=== PATIENT | female | born 1970 | race Caucasian/White ===

== ENCOUNTER 2020-06-07 11:24 | Inpatient (IN) ==
[2020-06-07] MEDS ORDERED: SODIUM CHLORIDE 0.9% 1000ML 1,000 ML IV SCH (13:00)
[2020-06-07 13:17] LABS: Basophils # (auto) 0.01 K/uL (0-0.2); Basophils % (auto) 0.2 %; Hematocrit (blood only) 35.7 % (37-47); Hemoglobin 12.5 g/dL (12.0-16.0); Immature Granulocytes # (auto) 0.03 K/uL (0.00-0.02); Immature Granulocytes % (auto) 0.5 %; Lymphocytes # (auto) 0.65 K/uL (1.2-3.4); Lymphocytes % (auto) 10.7 %; Mean Corpuscular Hemoglobin 29.1 pg (25-34); Mean Corpuscular Volume 83.2 fL (80-100); Monocytes # (auto) 0.56 K/uL (0.11-0.59); Monocytes % (auto) 9.2 %; Neutrophils # (auto) 4.85 K/uL (1.4-6.5); Neutrophils % (auto) 79.4 %; Platelet Count 212 K/uL (130-400); RDW Coefficient of Variation 12.7 % (11.5-14.5); RDW Standard Deviation 38.3 fL (36.4-46.3); Red Blood Count 4.29 M/uL (4.2-5.4)
--- NOTE | 2020-06-07 13:22 | XRay Report ---
XR chest 1V portable HISTORY: Difficulty breathing. Resp sx c/w COVID-19 COMPARISON: None. FINDINGS: No pneumothorax. No pleural effusions. The cardiac silhouette is normal in size. There is p atchy bilateral hazy airspace opacities with mild interstitial thickening. This likely represents a m ultifocal pneumonia. IMPRESSION: Bilateral patchy hazy airspace opacities with interstitial thickening. This favors a multifocal pneum onia. ACT 112: Negative or not required by law. Electronically signed by: Kishore Levin M.D. 06/07/2020 1:27 PM
[2020-06-07 13:30] LABS: Partial Thromboplastin Ratio 0.9; Partial Thromboplastin Time 23.1 Seconds (21.0-31.0); Prothrombin Time 10.6 Seconds (9.0-12.0)
[2020-06-07 13:36] LABS: Alanine Aminotransferase 41 U/L (12-78); Albumin Level 3.3 gm/dl (3.4-5.0); Aspartate Aminotransferase 33 U/L (15-37); Blood Urea Nitrogen 8 mg/dl (7-18); Calcium 8.2 mg/dl (8.5-10.1); Carbon Dioxide 26 mmol/L (21-32); Chloride 102 mmol/L (98-107); Creatinine Clr Calc Pharmacy 108.7 ml/min; Est GFR (African American) 100.5; Est GFR (Non-African American) 86.7; Glucose 213 mg/dl (70-99); Magnesium 2.3 mg/dl (1.8-2.4); Potassium 3.6 mmol/L (3.5-5.1); Sodium 134 mmol/L (136-145)
[2020-06-07 13:41] LABS: Albumin Globulin Ratio 0.8 (0.9-2); Alkaline Phosphatase 61 U/L (45-117); Bilirubin,Total 0.6 mg/dl (0.2-1); Globulin 4.1 gm/dl (2.5-4.0); Total Protein 7.4 gm/dl (6.4-8.2); Troponin I < 0.015 ng/ml (0-0.045)
--- NOTE | 2020-06-07 13:56 | Electrocardiogram Report ---
Test Reason : Blood Pressure : / mmHG Vent. Rate : 084 BPM Atrial Rate : 084 BPM P-R Int : 160 ms QRS Dur : 092 ms QT Int : 372 ms P-R-T Axes : 034 -05 016 degrees QTc Int : 439 ms Normal sinus rhythm Minimal voltage criteria for LVH, may be normal variant Poor R wave progression, consider anterior AK vs. lead placement vs. LVH Abnormal ECG No previous ECGs available Confirmed by Mykel Quinones ([id number]) on 06/07/2020 1:56:18 PM Referred By: REFERRED SELF Confirmed By:Dao Quinones
[2020-06-07 14:06] LABS: Influenza A virus by PCR Negative (Neg); Influenza B virus by PCR Negative (Neg); RSV by PCR Negative (Neg)
--- NOTE | 2020-06-07 14:07 | Emergency Department Note ---
History of Present Illness General Chief complaint: Shortness of Breath/Dyspnea Stated complaint: VERY LOW BREATHING-COVID POSITIVE Time Seen by Provider: 06/07/20 11:42 Source: patient Mode of arrival: ambulatory Limitations: no limitations History of Present Illness Provider complaint: Shortness of breath This is a 50-year-old female who presents to the ED with a chief complaint of shortness of breath. The patient had a Covid test that was positive on Friday. She states that she has been sick for the past 8 days. She had monoclonal antibodies yesterday. This was done at [facility]. She states that her breathing worsened overnight and her pulse ox was low this morning and she was recommended to come to the ED for evaluation. She states that if she is not moving her breathing seems to be okay but with exertion she begins to cough and have shortness of breath. Home Medications Medication Instructions Recorded Confirmed Type amlodipine 2.5 mg PO DAILY 06/07/20 06/07/20 History glimepiride [Amaryl] 4 mg PO DAILY 06/07/20 06/07/20 History metformin 1,000 mg PO BID 06/07/20 06/07/20 History Allergies Allergy/AdvReac Type Severity Reaction Status Date / Time Penicillins AdvReac Unknown itchy/hives Unverified 06/07/20 14:23 Past Med/Surg History Medical History (Updated 06/07/20 @ 14:24 by Mikie Rehman DO) COVID-19 Diabetes Social History Smoking Status: Never smoker Feels Safe at Home: Yes Review of Systems A total of 10 systems reviewed and were otherwise negative Physical Exam Vital Signs Vital Signs - 24 hr 06/07/20 11:32 06/07/20 11:42 06/07/20 11:44 Temperature 36.8 C Temperature Source Temporal Artery Scan Pulse Rate 90 89 88 Pulse Rate [Finger] Pulse Rate from SpO2 Sensor 90 89 Pulse Rhythm Regular Pulse Strength Normal Respiratory Rate 18 20 21 Respiratory Effort / Characteristics Non-Labored Spontaneous Respiratory Depth Normal Respiratory Pattern Regular Blood Pressure 158/79 H 164/70 H Blood Pressure [Right Arm] Blood Pressure Mean 105 101 Blood Pressure Mean [Right Arm] Blood Pressure Position Sitting Pulse Oximetry 85 L 96 97 Oxygen Delivery Method Room Air Oxygen Flow Rate Sepsis Recent Fever Within 48 Hours No Sepsis New/Unexplained Change in Mental Status N/A Sepsis Action Taken by Nursing No Action Required 06/07/20 11:45 06/07/20 12:00 06/07/20 13:00 Temperature Temperature Source Pulse Rate 85 Pulse Rate [Finger] 90 Pulse Rate from SpO2 Sensor 86 Pulse Rhythm Pulse Strength Respiratory Rate 20 22 Respiratory Effort / Characteristics Spontaneous Non-Labored Respiratory Depth Respiratory Pattern Blood Pressure 133/76 Blood Pressure [Right Arm] 190/91 H Blood Pressure Mean 95 Blood Pressure Mean [Right Arm] 124 Blood Pressure Position Pulse Oximetry 96 94 Oxygen Delivery Method Room Air Nasal Cannula Oxygen Flow Rate 3 Sepsis Recent Fever Within 48 Hours Sepsis New/Unexplained Change in Mental Status Sepsis Action Taken by Nursing CONSTITUTIONAL/VITAL SIGNS: Reviewed / noted above. GENERAL: Non-toxic in appearance. INTEGUMENTARY: Warm, dry, and [place]. HEAD: Normocephalic. EYES: without scleral icterus or trauma. ENT/OROPHARYNX: clear and moist. LYMPHADENOPATHY/NECK: Is supple without lymphadenopathy or meningismus. RESPIRATORY: Lungs are bilateral crackles. CARDIOVASCULAR: Regular rate and rhythm. GI/ABDOMEN: Soft and nontender. No organomegaly or pulsatile mass. No rebound or guarding. Normal bowel sounds. EXTREMITIES: Warm and well perfused. BACK: No CVA tenderness. NEUROLOGICAL: Intact without focal deficits. PSYCHIATRIC: normal affect. MUSCULOSKELETAL: Normally developed with good muscle tone. TRIAGE NURSING DOCUMENTATION REVIEWED. Course Administered Medications Discontinued Medications Sodium Chloride (Nss 1000ml) 1,000 mls @ 999 mls/hr IV .Q1H1M EZEQUIEL Stop: 06/07/20 14:00 Last Admin: 06/07/20 13:05 Dose: 999 mls/hr Documented by: [id number] Medical Decision Making Differential Diagnosis The differential was considered includes acute myocardial infarction, acute coronary syndrome, myocarditis, pericarditis, pericardial effusions /tamponad, esophageal perforation, pulmonary embolism, pneumonia, pneumothorax, cardiomyopathy, congestive heart, anemia , COPD/asthma exacerbation. Medical Records Attestation: I reviewed the patient's medical records. Home Medications Current Medication List: was personally reviewed by me Laboratory Data Attestation: I reviewed the patient's lab results. Result diagrams: 06/07/20 13:05 06/07/20 13:05 Lab Results 06/07/20 06/07/20 06/07/20 Range/Units 12:12 12:12 13:05 WBC 6.10 (4.8-10.8) K/uL RBC 4.29 (4.2-5.4) M/uL Hgb 12.5 (12.0-16.0) g/dL Hct 35.7 L (37-47) % MCV 83.2 (80-100) fL MCH 29.1 (25-34) pg MCHC 35.0 (32-36) g/dL RDW Std Deviation 38.3 (36.4-46.3) fL RDW Coeff of John 12.7 (11.5-14.5) % Plt Count 212 (130-400) K/uL MPV 10.0 (7.4-10.4) fL Immature Gran % (Auto) 0.5 % Neut % (Auto) 79.4 % Lymph % (Auto) 10.7 % [place] % (Auto) 9.2 % Eos % (Auto) 0.0 % Baso % (Auto) 0.2 % Neut # (Auto) 4.85 (1.4-6.5) K/uL Lymph # (Auto) 0.65 L (1.2-3.4) K/uL [place] # (Auto) 0.56 (0.11-0.59) K/uL Eos # (Auto) 0.00 (0-0.5) K/uL Baso # (Auto) 0.01 (0-0.2) K/uL Immature Gran # (Auto) 0.03 H (0.00-0.02) K/uL PT (9.0-12.0) Seconds INR (0.9-1.1) APTT (21.0-31.0) Seconds PTT Ratio Sodium (136-145) mmol/L Potassium (3.5-5.1) mmol/L Chloride (98-107) mmol/L Carbon Dioxide (21-32) mmol/L Anion Gap (3-11) BUN (7-18) mg/dl Creatinine (0.6-1.2) mg/dl Est Cr Clr Drug Dosing ml/min Est GFR ( Amer) Est GFR (Non-Af Amer) BUN/Creatinine Ratio (10-20) Glucose (70-99) mg/dl Lactate (0.4-2.0) mmol/L Calcium (8.5-10.1) mg/dl Magnesium (1.8-2.4) mg/dl Total Bilirubin (0.2-1) mg/dl AST (15-37) U/L ALT (12-78) U/L Alkaline Phosphatase (45-117) U/L Troponin I (0-0.045) ng/ml Total Protein (6.4-8.2) gm/dl Albumin (3.4-5.0) gm/dl Globulin (2.5-4.0) gm/dl Albumin/Globulin Ratio (0.9-2) Procalcitonin (0-0.5) ng/ml COVID-19 Eval Order CovFluRsv at [facility] SARS-CoV-2 (PCR) POSITIVE A* (Negative) Influenza Type A (PCR) Negative (Neg) Influenza Type B (PCR) Negative (Neg) RSV (RT-PCR) Negative (Neg) 06/07/20 06/07/20 06/07/20 Range/Units 13:05 13:05 13:05 WBC (4.8-10.8) K/uL RBC (4.2-5.4) M/uL Hgb (12.0-16.0) g/dL Hct (37-47) % MCV (80-100) fL MCH (25-34) pg MCHC (32-36) g/dL RDW Std Deviation (36.4-46.3) fL RDW Coeff of John (11.5-14.5) % Plt Count (130-400) K/uL MPV (7.4-10.4) fL Immature Gran % (Auto) % Neut % (Auto) % Lymph % (Auto) % [place] % (Auto) % Eos % (Auto) % Baso % (Auto) % Neut # (Auto) (1.4-6.5) K/uL Lymph # (Auto) (1.2-3.4) K/uL [place] # (Auto) (0.11-0.59) K/uL Eos # (Auto) (0-0.5) K/uL Baso # (Auto) (0-0.2) K/uL Immature Gran # (Auto) (0.00-0.02) K/uL PT 10.6 (9.0-12.0) Seconds INR 1.0 (0.9-1.1) APTT 23.1 (21.0-31.0) Seconds PTT Ratio 0.9 Sodium 134 L (136-145) mmol/L Potassium 3.6 (3.5-5.1) mmol/L Chloride 102 (98-107) mmol/L Carbon Dioxide 26 (21-32) mmol/L Anion Gap 6.0 (3-11) BUN 8 (7-18) mg/dl Creatinine 0.79 (0.6-1.2) mg/dl Est Cr Clr Drug Dosing 108.7 ml/min Est GFR ( Amer) 100.5 Est GFR (Non-Af Amer) 86.7 BUN/Creatinine Ratio 10.0 (10-20) Glucose 213 H (70-99) mg/dl Lactate 1.2 (0.4-2.0) mmol/L Calcium 8.2 L (8.5-10.1) mg/dl Magnesium 2.3 (1.8-2.4) mg/dl Total Bilirubin 0.6 (0.2-1) mg/dl AST 33 (15-37) U/L ALT 41 (12-78) U/L Alkaline Phosphatase 61 (45-117) U/L Troponin I < 0.015 (0-0.045) ng/ml Total Protein 7.4 (6.4-8.2) gm/dl Albumin 3.3 L (3.4-5.0) gm/dl Globulin 4.1 H (2.5-4.0) gm/dl Albumin/Globulin Ratio 0.8 L (0.9-2) Procalcitonin (0-0.5) ng/ml COVID-19 Eval Order SARS-CoV-2 (PCR) (Negative) Influenza Type A (PCR) (Neg) Influenza Type B (PCR) (Neg) RSV (RT-PCR) (Neg) 06/07/20 Range/Units 13:05 WBC (4.8-10.8) K/uL RBC (4.2-5.4) M/uL Hgb (12.0-16.0) g/dL Hct (37-47) % MCV (80-100) fL MCH (25-34) pg MCHC (32-36) g/dL RDW Std Deviation (36.4-46.3) fL RDW Coeff of John (11.5-14.5) % Plt Count (130-400) K/uL MPV (7.4-10.4) fL Immature Gran % (Auto) % Neut % (Auto) % Lymph % (Auto) % [place] % (Auto) % Eos % (Auto) % Baso % (Auto) % Neut # (Auto) (1.4-6.5) K/uL Lymph # (Auto) (1.2-3.4) K/uL [place] # (Auto) (0.11-0.59) K/uL Eos # (Auto) (0-0.5) K/uL Baso # (Auto) (0-0.2) K/uL Immature Gran # (Auto) (0.00-0.02) K/uL PT (9.0-12.0) Seconds INR (0.9-1.1) APTT (21.0-31.0) Seconds PTT Ratio Sodium (136-145) mmol/L Potassium (3.5-5.1) mmol/L Chloride (98-107) mmol/L Carbon Dioxide (21-32) mmol/L Anion Gap (3-11) BUN (7-18) mg/dl Creatinine (0.6-1.2) mg/dl Est Cr Clr Drug Dosing ml/min Est GFR ( Amer) Est GFR (Non-Af Amer) BUN/Creatinine Ratio (10-20) Glucose (70-99) mg/dl Lactate (0.4-2.0) mmol/L Calcium (8.5-10.1) mg/dl Magnesium (1.8-2.4) mg/dl Total Bilirubin (0.2-1) mg/dl AST (15-37) U/L ALT (12-78) U/L Alkaline Phosphatase (45-117) U/L Troponin I (0-0.045) ng/ml Total Protein (6.4-8.2) gm/dl Albumin (3.4-5.0) gm/dl Globulin (2.5-4.0) gm/dl Albumin/Globulin Ratio (0.9-2) Procalcitonin < 0.05 (0-0.5) ng/ml COVID-19 Eval Order SARS-CoV-2 (PCR) (Negative) Influenza Type A (PCR) (Neg) Influenza Type B (PCR) (Neg) RSV (RT-PCR) (Neg) Imaging Data Radiologist's Impression: XR chest 1V portable HISTORY: Difficulty breathing. Resp sx c/w COVID-19 COMPARISON: None. FINDINGS: No pneumothorax. No pleural effusions. The cardiac silhouette is normal in size. There is patchy bilateral hazy airspace opacities with mild interstitial thickening. This likely represents a multifocal pneumonia. IMPRESSION: Bilateral patchy hazy airspace opacities with interstitial thickening. This favors a multifocal pneumonia. MDM Narrative This is a 50-year-old female who presents with hypoxia and in light of having Covid. The patient's exam reveals crackles in the bilateral lung medel primarily in the bases. CBC was unremarkable. Chemistry panel was unremarkable. Troponin is negative. Procalcitonin is normal/negative. Covid test was positive. The patient is requiring at least 2 or 3 L of oxygen for her hypoxia. Chest x-ray shows bilateral pneumonia. Patient will be seen for further inpatient evaluation and care by the hospitalist. Impression & Plan COVID-19, Bilateral pneumonia, Hypoxia Discharge Plan Visit Data Chief Complaint: Shortness of Breath/Dyspnea Stated Complaint: VERY LOW BREATHING-COVID POSITIVE ED Provider: Mikie Rehman Discharge Problem: COVID-19, Bilateral pneumonia, Hypoxia Patient Disposition: Being Evaluated by Hospitalist Forms Stand Alone Forms: [facility], [facility] Emergency Department, Important Visit Information Prescriptions Prescriptions: No Action amlodipine 2.5 mg Tablet 2.5 mg PO DAILY RF: 0 metformin 1,000 mg Tablet 1,000 mg PO BID RF: 0 glimepiride [Amaryl] 4 mg Tablet 4 mg PO DAILY RF: 0 Referrals Referrals: Gregorio Espana [Primary Care Provider] -
[2020-06-07 14:16] LABS: SARS CoV2 RNA(COVID-19) InHosp POSITIVE (Negative)
[2020-06-07] MEDS ORDERED: ENOXAPARIN INJ 30 MG/0.3 ML SYR SQ SCH (14:38)
[2020-06-07] MEDS ORDERED: REMDESIVIR 200 MG in SODIUM CHLORIDE 0.9% 210 ML IV STA (14:38)
[2020-06-07] MEDS ORDERED: PHARMACY GLYCEMIC MGMT CONSULT STA (14:38)
--- NOTE | 2020-06-07 14:44 | History & Physical Report ---
Date of Service June 07, 2020 Assessment & Plan (1) COVID-19: Patient is COVID-19 pneumonia with associated chest x-ray changes and hypoxemia respiration rate of 22 Patient on dexamethasone and remdesivir patient is currently on nasal cannula oxygen will watch cautiously as she is day 8 and likely may worsen as he continues to be Patient kept request cough suppressant (2) Diabetes: Patient typically takes oral sulfonylurea and Metformin these will be held glycemic consult for insulin management hemoglobin A1c and cholesterol be checked (3) Hypertension: Typically takes amlodipine 2.5 (4) DVT prophylaxis: With ACT prevention of Lovenox to 0.5/kg every 12 History of Present Illness Primary Care Provider: Gregorio Espana 50-year-old female whose upper respiratory symptoms began approximately 8 days ago on 05/30/2020. Patient had outpatient Covid testing on 06/05/2020 which was positive. Patient was in [facility] ER on 06/06/2020 where he received she received Covid antibody therapy, despite this fact he had progressive shortness of breath dyspnea nonproductive cough she presented to our emergency department where she is found to have an oxygen saturation of 85% on room air. Imaging of her chest reveals patchy bilateral pulmonary infiltrates consistent with bilateral pneumonia. 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 Allergies Allergy/AdvReac Type Severity Reaction Status Date / Time Penicillins AdvReac Unknown itchy/hives Unverified 06/07/20 14:23 Home Medications Medication Instructions Recorded Confirmed Type amlodipine 2.5 mg PO DAILY 06/07/20 06/07/20 History glimepiride [Amaryl] 4 mg PO DAILY 06/07/20 06/07/20 History metformin 1,000 mg PO BID 06/07/20 06/07/20 History Past Med/Surg History Medical History (Updated 06/07/20 @ 14:43 by Chencho Arthur MD) COVID-19 Diabetes Family History (Updated 06/07/20 @ 14:40 by Chencho Arthur MD) Other Diabetes Heart disease Kidney disease Social History Smoking Status: Never smoker Feels Safe at Home: Yes Review of Systems Review of Systems: Moderate distress and fatigue no headache, blurry or double vision no speech or swallowing issues Pleuritic chest pain, pressure or palpitations Increasing shortness of breath, nonproductive cough no abdominal pain, nausea or vomiting, no diarrhea no dysuria, hematuria or frequency no focal joint pain or swelling no back pain, CVA tenderness or radicular pain no bruising, bleeding or rashes no focal signs of weakness or numbness or altered sensation no complaints of anxiety or depression.. Physical Exam Physical Exam: The patient appeared well nourished and normally developed. She has morbid obesity with a BMI of 34.2 Vital signs as documented. Head exam is normocephalic atraumatic no scleral icterus Neck is without JVD, thyromegaly, or carotid bruits. Lungs are creased work of breathing bilateral rales one half the way up no focal loss no egophony Cardiac exam, Rhythm is regular.. No murmurs, rubs or gallops. Abdominal exam reveals normal bowel sounds, soft non tender, no masses Extremities are nonedematous and both pedal pulses are present Neurologic exam is alert and oriented, no focal loss of strength or sensation Skin is without bruises or rashes Psychologically is without concerns for anxiety or depression Results & Data Results & Data ([facility]) Vital Signs (Past 12 Hours) Vital Signs Temp Pulse Pulse Resp BP BP Pulse Ox 06/07/20 14:31 74 18 148/76 H 94 06/07/20 13:00 90 22 190/91 H 94 06/07/20 12:00 85 20 133/76 96 06/07/20 11:44 88 21 97 06/07/20 11:42 89 20 164/70 H 96 06/07/20 11:32 98.2 F 90 18 158/79 H 85 L Code Status & VTE Plan VTE Prophylaxis Plan VTE Prophylaxis will be ordered: Yes PG Care Time/CCT Total # of Minutes Spent Total Time Spent with Patient: Total time spent is greater than 50% in coordination of care (as documented) at patient's floor/unit and/or counseling patient: Coding Level of Care Code 18076 Initial Inpt Care Lvl 2 Diagnoses COVID-19 U07.1 Diabetes E11.9 Hypertension I10 DVT prophylaxis Z29.9
[2020-06-07] MEDS ORDERED: ACETAMINOPHEN 325 MG TAB PO PRN (15:30)
[2020-06-07] MEDS ORDERED: ONDANSETRON INJ 2 MG/ML 2 ML VIAL IV PRN (15:30)
[2020-06-07] MEDS ORDERED: POLYETHYLENE (MIRALAX) 17 GM PACK PO PRN (15:30)
[2020-06-07] MEDS ORDERED: ALBUTEROL HFA 8 GM INHALER INH SCH (15:30)
[2020-06-07] MEDS: dexAMETHasone 6 MG in SYRINGE 0 ML IV SCH (15:35)
[2020-06-07] MEDS ORDERED: AZITHROMYCIN 250 MG TAB PO ONE (16:00)
[2020-06-07] MEDS ORDERED: GLUCOSE 40% GEL 15 GM TUBE PO PRN (16:15)
[2020-06-07] MEDS ORDERED: CARBOHYDRATES FOR HYPOGLYCEMIA PO PRN (16:15)
[2020-06-07] MEDS ORDERED: DEXTROSE 50% 50 ML SYRINGE IV PRN (16:15)
[2020-06-07] MEDS ORDERED: INSULIN HUMAN NPH SC ONE (16:15)
[2020-06-07] MEDS ORDERED: GLUCAGON FOR INJ 1 MG VIAL IM PRN (16:15)
[2020-06-07] MEDS ORDERED: GLUCOSE 10 TABS/TUBE PO PRN (16:15)
[2020-06-07] MEDS ORDERED: PHARMACY GLYCEMIC MGMT CONSULT PRN (16:27)
[2020-06-07] MEDS: amLODIPine BESYLATE 5 MG TAB PO SCH (16:29)
[2020-06-07] MEDS: ENOXAPARIN INJ 60 MG/0.6 ML SYR SQ SCH (16:30)
[2020-06-07] MEDS: INSULIN ASPART 100 UNITS/ML 3 ML PEN SC SCH ×2 (17:46→21:54)
[2020-06-07] MEDS: SODIUM CHLORIDE 0.9% 10ML FLUSH IV SCH (18:35)
[2020-06-07] MEDS: ALBUTEROL HFA 8 GM INHALER INH SCH (19:38)
[2020-06-08] MEDS: INSULIN ASPART 100 UNITS/ML 3 ML PEN SC SCH ×6 (00:17→22:29)
[2020-06-08] MEDS: ALBUTEROL HFA 8 GM INHALER INH SCH ×4 (00:38→20:00)
[2020-06-08] MEDS: ENOXAPARIN INJ 60 MG/0.6 ML SYR SQ SCH ×2 (04:20→17:21)
[2020-06-08] MEDS: amLODIPine BESYLATE 5 MG TAB PO SCH (08:17)
[2020-06-08] MEDS: AZITHROMYCIN 250 MG TAB PO SCH (08:17)
[2020-06-08] MEDS: dexAMETHasone 6 MG in SYRINGE 0 ML IV SCH (08:17)
[2020-06-08] MEDS ORDERED: INSULIN HUMAN NPH SC ONE (09:00)
[2020-06-08] MEDS ORDERED: BENZONATATE 100 MG CAPSULE PO PRN (09:12)
[2020-06-08 09:23] LABS: Hematocrit (blood only) 34.5 % (37-47); Hemoglobin 12.1 g/dL (12.0-16.0); Immature Granulocytes # (auto) 0.03 K/uL (0.00-0.02); Lymphocytes # (auto) 0.72 K/uL (1.2-3.4); Lymphocytes % (auto) 24.8 %; Mean Corpuscular Hemoglobin 29.1 pg (25-34); Mean Corpuscular Hgb Conc 35.1 g/dL (32-36); Mean Corpuscular Volume 82.9 fL (80-100); Mean Platelet Volume 10.5 fL (7.4-10.4); Monocytes # (auto) 0.46 K/uL (0.11-0.59); Monocytes % (auto) 15.9 %; Neutrophils # (auto) 1.69 K/uL (1.4-6.5); Neutrophils % (auto) 58.3 %; Platelet Count 256 K/uL (130-400); RDW Coefficient of Variation 12.5 % (11.5-14.5); RDW Standard Deviation 37.8 fL (36.4-46.3); Red Blood Count 4.16 M/uL (4.2-5.4)
[2020-06-08 09:28] LABS: Estimated Average Glucose 203 mg/dl; Hemoglobin A1C 8.7 % (4.5-5.6)
[2020-06-08] MEDS ORDERED: amLODIPine BESYLATE 5 MG TAB PO ONE (09:30)
[2020-06-08 09:55] LABS: Albumin Level 3.2 gm/dl (3.4-5.0); BUN Creatinine Ratio 17.9 (10-20); Creatinine Clr Calc Pharmacy 139.9 ml/min; Est GFR (African American) 121.7; Potassium 3.5 mmol/L (3.5-5.1)
[2020-06-08 09:58] LABS: Albumin Globulin Ratio 0.8 (0.9-2); Bilirubin,Total 0.5 mg/dl (0.2-1); Globulin 4.2 gm/dl (2.5-4.0); Total Protein 7.4 gm/dl (6.4-8.2)
[2020-06-08] MEDS: REMDESIVIR 100mg: Days 2-5 IV SCH (11:53)
[2020-06-08] MEDS: SODIUM CHLORIDE 0.9% 10ML FLUSH IV SCH (13:31)
--- NOTE | 2020-06-08 14:16 | Pharmacy Report ---
Pharmacy Glycemic Short Note 2 - Date of Service June 08, 2020 - Glycemic Short BSG Results (Last 24 hours): 06/07/20 06/07/20 06/07/20 15:53 17:28 20:36 Glucose POC Glucose 202 H 199 H 288 H 06/08/20 06/08/20 06/08/20 00:02 04:12 07:09 Glucose 158 H POC Glucose 239 H 148 H 06/08/20 06/08/20 07:41 12:07 Glucose POC Glucose 166 H 231 H OUTPATIENT ANTIDIABETIC REGIMEN: * METFORMIN 1 GM BIDM, Glimepiride 4 mg daily * A1c 8.7% 06/08/20 ASSESSMENT: * Ms. SHEETS is admitted with hypoxia secondary to COVID-19 infection, she has a PMH including HTN and Type II diabetes * Initial BSGs elevated in the 200s, also started on 6mg dexamethasone IV daily. * Utilizing NPH to help with steroid related hyperglycemia, will consider adding lantus if BSGs remain elevated * Novolog currently being dosed at weight based stress of 3, will continue for now, tighten if BSGs remain elevated. PLAN FOR INPATIENT GLYCEMIC CONTROL: * Hold outpatient oral diabetes medications * Basal insulin * NPH 40 units with dexamethasone * Bolus insulin * NovoLog per scale ACHS or Q6hrs while NPO * Goal Range: Low 110 mg/dL - High 140 mg/dL * Correction Factor: 15 mg/dL/unit * Nutritional / Prandial insulin per carb ratio of 1 unit per 5 grams CHO consumed PLAN FOR DISCHARGE: * tbd
[2020-06-08] MEDS ORDERED: guaiFENesin/CODEINE 100MG/10MG 5ML UDC PO PRN (16:07)
--- NOTE | 2020-06-08 16:12 | Hospitalist Progress Note ---
Date of Service June 08, 2020 Assessment & Plan (1) COVID-19: COVID-19 pneumonia with associated chest x-ray changes and hypoxemia, requiring 4 to 5 L nasal cannula She received Regeneron at [facility] on day#7, symptoms started on 3/16 Procalcitonin is negative, troponin negative Blood cultures no growth to date -Continue supplemental O2 to keep pulse ox greater than 90% -Continue dexamethasone 6 mg IV daily x10-day course -Continue remdesivir x5-day course -Continue guaifenesin with codeine as needed -Added Tessalon Perles 20 mg p.o. 3 times daily -Added flutter valve and incentive spirometry, encourage prone positioning -Continue azithromycin x5-day course Continue albuterol scheduled -Would follow chest x-ray to resolution -Follow CBC, CMP, CRP in the morning (2) Hypoxia: As above (3) Diabetes: Patient typically takes oral sulfonylurea and Metformin --hold these -Glycemic consult for insulin management appreciated-giving NPH and NovoLog hemoglobin A1c elevated at 8.7% (4) Hypertension: Continue amlodipine 5 mg daily Blood pressures are mildly elevated possibly due to steroid use Continue to follow (5) DVT prophylaxis: Continue Lovenox 0.5 mg/KG every 12 hours Disposition-continued stay Admission and Anticipated Discharge Date Admission Date: June 07, 2020 Subjective Pt reports she doesn't feel much better than when she came in. Her cough is maybe a little less with addition of Tessalon perles. Denies N/V/D. Is eating. No headache. Review of Systems Review of Systems: All systems reviewed & are unremarkable except as noted in HPI & below Physical Exam Constitutional: WD/WN, vitals as above Eyes: + anicteric sclerae Neck: trachea midline, no thyromegaly Respiratory: normal respiratory effort Auscultation: + diminished lung sounds (throughout) and + crackles (bilateral lower lung medel); no wheezes Cardiovascular: RRR, no murmur, no edema Extremities: no calf tenderness Chest (Breasts): Chest: normal inspection of chest Gastrointestinal (Abdomen): normal bowel sounds, soft, nontender, no hepatosplenomegaly Musculoskeletal: Extremities: extremities normal to inspection; no cyanosis and no clubbing Skin: no rashes, warm and dry Neurologic: moves all extremities and awake; no focal motor deficits Psychiatric: A+Ox3, euthymic affect Lymphatic: no lymphedema Results & Data Results & Data ([facility]) Vital Signs (Past 12 Hours) Vital Signs Temp Pulse Resp BP Pulse Ox 06/08/20 15:17 36.7 C 69 22 161/84 H 94 06/08/20 13:48 75 18 93 06/08/20 11:55 36.5 C 73 20 154/79 H 90 06/08/20 11:06 95 06/08/20 07:56 73 18 91 06/08/20 07:52 36.6 C 72 18 136/82 88 L 06/08/20 04:15 36.5 C 70 18 134/73 91 Laboratory Results 06/08/20 06/08/20 06/08/20 Range/Units 16:13 12:07 07:41 WBC (4.8-10.8) K/uL RBC (4.2-5.4) M/uL Hgb (12.0-16.0) g/dL Hct (37-47) % MCV (80-100) fL MCH (25-34) pg MCHC (32-36) g/dL RDW Std Deviation (36.4-46.3) fL RDW Coeff of John (11.5-14.5) % Plt Count (130-400) K/uL MPV (7.4-10.4) fL Immature Gran % (Auto) % Neut % (Auto) % Lymph % (Auto) % [place] % (Auto) % Eos % (Auto) % Baso % (Auto) % Neut # (Auto) (1.4-6.5) K/uL Lymph # (Auto) (1.2-3.4) K/uL [place] # (Auto) (0.11-0.59) K/uL Eos # (Auto) (0-0.5) K/uL Baso # (Auto) (0-0.2) K/uL Immature Gran # (Auto) (0.00-0.02) K/uL Sodium (136-145) mmol/L Potassium (3.5-5.1) mmol/L Chloride (98-107) mmol/L Carbon Dioxide (21-32) mmol/L Anion Gap (3-11) BUN (7-18) mg/dl Creatinine (0.6-1.2) mg/dl Est Cr Clr Drug Dosing ml/min Est GFR ( Amer) Est GFR (Non-Af Amer) BUN/Creatinine Ratio (10-20) Glucose (70-99) mg/dl POC Glucose 197 H 231 H 166 H (70-99) mg/dl Estimat Average Glucose mg/dl Hemoglobin A1c (4.5-5.6) % Calcium (8.5-10.1) mg/dl Total Bilirubin (0.2-1) mg/dl AST (15-37) U/L ALT (12-78) U/L Alkaline Phosphatase (45-117) U/L Total Protein (6.4-8.2) gm/dl Albumin (3.4-5.0) gm/dl Globulin (2.5-4.0) gm/dl Albumin/Globulin Ratio (0.9-2) Triglycerides (0-150) mg/dl Cholesterol (0-200) mg/dl LDL Cholesterol, Calc mg/dl VLDL Cholesterol, Calc mg/dl HDL Cholesterol mg/dl Cholesterol/HDL Ratio 06/08/20 06/08/20 06/08/20 Range/Units 07:09 07:09 07:09 WBC 2.90 L (4.8-10.8) K/uL RBC 4.16 L (4.2-5.4) M/uL Hgb 12.1 (12.0-16.0) g/dL Hct 34.5 L (37-47) % MCV 82.9 (80-100) fL MCH 29.1 (25-34) pg MCHC 35.1 (32-36) g/dL RDW Std Deviation 37.8 (36.4-46.3) fL RDW Coeff of John 12.5 (11.5-14.5) % Plt Count 256 (130-400) K/uL MPV 10.5 H (7.4-10.4) fL Immature Gran % (Auto) 1.0 % Neut % (Auto) 58.3 % Lymph % (Auto) 24.8 % [place] % (Auto) 15.9 % Eos % (Auto) 0.0 % Baso % (Auto) 0.0 % Neut # (Auto) 1.69 (1.4-6.5) K/uL Lymph # (Auto) 0.72 L (1.2-3.4) K/uL [place] # (Auto) 0.46 (0.11-0.59) K/uL Eos # (Auto) 0.00 (0-0.5) K/uL Baso # (Auto) 0.00 (0-0.2) K/uL Immature Gran # (Auto) 0.03 H (0.00-0.02) K/uL Sodium 135 L (136-145) mmol/L Potassium 3.5 (3.5-5.1) mmol/L Chloride 104 (98-107) mmol/L Carbon Dioxide 24 (21-32) mmol/L Anion Gap 7.0 (3-11) BUN 11 (7-18) mg/dl Creatinine 0.61 (0.6-1.2) mg/dl Est Cr Clr Drug Dosing 139.9 ml/min Est GFR ( Amer) 121.7 Est GFR (Non-Af Amer) 105.0 BUN/Creatinine Ratio 17.9 (10-20) Glucose 158 H (70-99) mg/dl POC Glucose (70-99) mg/dl Estimat Average Glucose 203 mg/dl Hemoglobin A1c 8.7 H (4.5-5.6) % Calcium 9.0 (8.5-10.1) mg/dl Total Bilirubin 0.5 (0.2-1) mg/dl AST 36 (15-37) U/L ALT 43 (12-78) U/L Alkaline Phosphatase 60 (45-117) U/L Total Protein 7.4 (6.4-8.2) gm/dl Albumin 3.2 L (3.4-5.0) gm/dl Globulin 4.2 H (2.5-4.0) gm/dl Albumin/Globulin Ratio 0.8 L (0.9-2) Triglycerides 97 (0-150) mg/dl Cholesterol 153 (0-200) mg/dl LDL Cholesterol, Calc 92 mg/dl VLDL Cholesterol, Calc 19 mg/dl HDL Cholesterol 42 mg/dl Cholesterol/HDL Ratio 4 06/08/20 06/08/20 06/07/20 Range/Units 04:12 00:02 20:36 WBC (4.8-10.8) K/uL RBC (4.2-5.4) M/uL Hgb (12.0-16.0) g/dL Hct (37-47) % MCV (80-100) fL MCH (25-34) pg MCHC (32-36) g/dL RDW Std Deviation (36.4-46.3) fL RDW Coeff of John (11.5-14.5) % Plt Count (130-400) K/uL MPV (7.4-10.4) fL Immature Gran % (Auto) % Neut % (Auto) % Lymph % (Auto) % [place] % (Auto) % Eos % (Auto) % Baso % (Auto) % Neut # (Auto) (1.4-6.5) K/uL Lymph # (Auto) (1.2-3.4) K/uL [place] # (Auto) (0.11-0.59) K/uL Eos # (Auto) (0-0.5) K/uL Baso # (Auto) (0-0.2) K/uL Immature Gran # (Auto) (0.00-0.02) K/uL Sodium (136-145) mmol/L Potassium (3.5-5.1) mmol/L Chloride (98-107) mmol/L Carbon Dioxide (21-32) mmol/L Anion Gap (3-11) BUN (7-18) mg/dl Creatinine (0.6-1.2) mg/dl Est Cr Clr Drug Dosing ml/min Est GFR ( Amer) Est GFR (Non-Af Amer) BUN/Creatinine Ratio (10-20) Glucose (70-99) mg/dl POC Glucose 148 H 239 H 288 H (70-99) mg/dl Estimat Average Glucose mg/dl Hemoglobin A1c (4.5-5.6) % Calcium (8.5-10.1) mg/dl Total Bilirubin (0.2-1) mg/dl AST (15-37) U/L ALT (12-78) U/L Alkaline Phosphatase (45-117) U/L Total Protein (6.4-8.2) gm/dl Albumin (3.4-5.0) gm/dl Globulin (2.5-4.0) gm/dl Albumin/Globulin Ratio (0.9-2) Triglycerides (0-150) mg/dl Cholesterol (0-200) mg/dl LDL Cholesterol, Calc mg/dl VLDL Cholesterol, Calc mg/dl HDL Cholesterol mg/dl Cholesterol/HDL Ratio PG Care Time/CCT Total # of Minutes Spent Total Time Spent with Patient: Total time spent is greater than 50% in coordination of care (as documented) at patient's floor/unit and/or counseling patient: Coding Level of Care Code 12425 Subseq Hosp Care Lvl 3 Diagnoses COVID-19 U07.1 Hypoxia R09.02 Diabetes E11.9 Hypertension I10 DVT prophylaxis Z29.9
[2020-06-08] MEDS: BENZONATATE 100 MG CAPSULE PO SCH (21:53)
[2020-06-09] MEDS: ALBUTEROL HFA 8 GM INHALER INH SCH ×4 (00:20→19:39)
[2020-06-09] MEDS: INSULIN ASPART 100 UNITS/ML 3 ML PEN SC SCH ×6 (01:00→21:28)
[2020-06-09] MEDS: ENOXAPARIN INJ 60 MG/0.6 ML SYR SQ SCH ×2 (05:17→17:49)
[2020-06-09 07:31] LABS: Basophils # (auto) 0.01 K/uL (0-0.2); Basophils % (auto) 0.2 %; Hematocrit (blood only) 34.5 % (37-47); Hemoglobin 11.9 g/dL (12.0-16.0); Immature Granulocytes # (auto) 0.04 K/uL (0.00-0.02); Immature Granulocytes % (auto) 0.8 %; Lymphocytes # (auto) 0.88 K/uL (1.2-3.4); Lymphocytes % (auto) 17.4 %; Mean Corpuscular Hemoglobin 28.7 pg (25-34); Mean Corpuscular Hgb Conc 34.5 g/dL (32-36); Mean Corpuscular Volume 83.3 fL (80-100); Mean Platelet Volume 10.4 fL (7.4-10.4); Monocytes # (auto) 0.61 K/uL (0.11-0.59); Monocytes % (auto) 12.1 %; Neutrophils # (auto) 3.51 K/uL (1.4-6.5); Neutrophils % (auto) 69.5 %; Platelet Count 307 K/uL (130-400); RDW Coefficient of Variation 12.4 % (11.5-14.5); RDW Standard Deviation 37.8 fL (36.4-46.3); Red Blood Count 4.14 M/uL (4.2-5.4); White Blood Count 5.05 K/uL (4.8-10.8)
[2020-06-09 07:59] LABS: BUN Creatinine Ratio 21.6 (10-20); C Reactive Protein 4.9 mg/dl (0-0.29); Calcium 8.6 mg/dl (8.5-10.1); Est GFR (African American) 112.4; Potassium 3.2 mmol/L (3.5-5.1)
[2020-06-09 08:02] LABS: Albumin Globulin Ratio 0.8 (0.9-2); Bilirubin,Total 0.5 mg/dl (0.2-1); Globulin 3.8 gm/dl (2.5-4.0); Total Protein 6.8 gm/dl (6.4-8.2)
[2020-06-09] MEDS ORDERED: POTASSIUM CHLORIDE CRTAB 20 MEQ TABCR PO STA (08:47)
[2020-06-09] MEDS: BENZONATATE 100 MG CAPSULE PO SCH ×3 (08:58→21:24)
[2020-06-09] MEDS: dexAMETHasone 6 MG in SYRINGE 0 ML IV SCH (08:59)
[2020-06-09] MEDS ORDERED: INSULIN HUMAN NPH SC SCH (09:00)
[2020-06-09] MEDS: AZITHROMYCIN 250 MG TAB PO SCH (09:00)
[2020-06-09] MEDS: REMDESIVIR 100mg: Days 2-5 IV SCH (12:07)
[2020-06-09] MEDS: SODIUM CHLORIDE 0.9% 10ML FLUSH IV SCH (13:00)
--- NOTE | 2020-06-09 14:35 | Pharmacy Report ---
Pharmacy Glycemic Short Note 2 - Date of Service June 09, 2020 - Glycemic Short BSG Results (Last 24 hours): 06/08/20 06/08/20 06/09/20 16:13 20:19 00:03 Glucose POC Glucose 197 H 168 H 152 H 06/09/20 06/09/20 06/09/20 04:41 06:31 07:33 Glucose 152 H POC Glucose 158 H 148 H 06/09/20 11:31 Glucose POC Glucose 265 H OUTPATIENT ANTIDIABETIC REGIMEN: * METFORMIN 1 GM BIDM, Glimepiride 4 mg daily * A1c 8.7% 06/08/20 ASSESSMENT: 06/09 * Pt received 82 units of insulin yesterday, 40 units of NPH and 42 units of prandial/correctional novolog * Day 3 of dexamethasone, continued 40 units of NPH (~0.4 unit/kg) * Lunch BSG elevated again today but patient trended down yesterday will tighten carb ratio with breakfast 06/08 * Ms. SHEETS is admitted with hypoxia secondary to COVID-19 infection, she has a PMH including HTN and Type II diabetes * Initial BSGs elevated in the 200s, also started on 6mg dexamethasone IV daily. * Utilizing NPH to help with steroid related hyperglycemia, will consider adding lantus if BSGs remain elevated * Novolog currently being dosed at weight based stress of 3, will continue for now, tighten if BSGs remain elevated. PLAN FOR INPATIENT GLYCEMIC CONTROL: * Hold outpatient oral diabetes medications * Basal insulin * NPH 40 units with dexamethasone * Bolus insulin * NovoLog per scale ACHS or Q6hrs while NPO * Goal Range: Low 110 mg/dL - High 140 mg/dL * Correction Factor: 15 mg/dL/unit * Nutritional / Prandial insulin per carb ratio of 1 unit per 5 grams CHO consumed for lunch,dinner,HS, 1 unit per 4 grams of CHO consumed for breakfast PLAN FOR DISCHARGE: * tbd
--- NOTE | 2020-06-09 18:39 | Hospitalist Progress Note ---
Date of Service June 09, 2020 Assessment & Plan (1) COVID-19: COVID-19 pneumonia with associated chest x-ray changes and hypoxemia, requiring 4 to 5 L nasal cannula initially now weaned down to 2 L nasal cannula [facility] symptoms started on 05/30 Procalcitonin is negative, troponin negative, CRP is 4.9 Blood cultures remain no growth to date -Continue supplemental O2 to keep pulse ox greater than 90% and wean off as tolerated -Continue dexamethasone 6 mg IV daily x10-day course-last day will be 06/16 -Continue remdesivir x5-day course-last day of course will be 06/11 -Continue guaifenesin with codeine as needed -Continue Tessalon Perles 20 mg p.o. 3 times daily -Continue flutter valve and incentive spirometry, encourage prone positioning -Continue azithromycin x5-day course-last day will be 06/11 Continue albuterol scheduled -Would follow chest x-ray to resolution -Follow CBC, CMP, CRP in the morning (2) Hypoxia: As above, improving (3) Diabetes: Patient typically takes oral sulfonylurea and Metformin --hold these while inpatient With hyperglycemia secondary to corticosteroids -Glycemic consult for insulin management appreciated-giving NPH and NovoLog hemoglobin A1c elevated at 8.7%-May benefit from third oral agent versus insulin at home (4) Hypokalemia: Potassium mildly low at 3.2 Replaced with oral potassium chloride Follow BMP and magnesium in the morning (5) Hypertension: Blood pressures are controlled Continue amlodipine 5 mg daily Continue to follow (6) DVT prophylaxis: Continue Lovenox 0.5 mg/KG every 12 hours Disposition-continued stay but improving, could potentially be discharged tomorrow with a two-step walk test Admission and Anticipated Discharge Date Admission Date: June 07, 2020 Subjective Patient reports still has a cough. She was out of bed and got washed up today and sat on the side the bed to eat her meals. She is a little behind on doing her incentive spirometer when I saw her. She denies any nausea or vomiting. No other complaints except cough. She is fatigued. Review of Systems Review of Systems: All systems reviewed & are unremarkable except as noted in HPI & below Physical Exam Constitutional: WD/WN, vitals as above Eyes: + anicteric sclerae Neck: trachea midline, no thyromegaly Respiratory: normal respiratory effort and + cough Auscultation: + diminished lung sounds (throughout) and + crackles (bilateral lower lung medel); no wheezes Cardiovascular: RRR, no murmur, no edema Extremities: no calf tenderness Chest (Breasts): Chest: normal inspection of chest Gastrointestinal (Abdomen): normal bowel sounds, soft, nontender, no hepatosplenomegaly Musculoskeletal: Extremities: extremities normal to inspection; no cyanosis and no clubbing Skin: no rashes, warm and dry Neurologic: moves all extremities and awake; no focal motor deficits Psychiatric: Orientation: alert and oriented x 3 Affect: + flat affect Lymphatic: no lymphedema Results & Data Results & Data ([facility]) Vital Signs (Past 12 Hours) Vital Signs Temp Pulse Resp BP Pulse Ox 06/09/20 15:57 36.8 C 62 18 135/58 L 93 06/09/20 12:27 75 20 91 06/09/20 12:23 36.4 C L 78 20 148/83 H 90 06/09/20 07:34 36.8 C 63 18 134/68 94 06/09/20 07:28 65 20 97 Laboratory Results 06/09/20 06/09/20 06/09/20 Range/Units 16:17 11:31 07:33 WBC (4.8-10.8) K/uL RBC (4.2-5.4) M/uL Hgb (12.0-16.0) g/dL Hct (37-47) % MCV (80-100) fL MCH (25-34) pg MCHC (32-36) g/dL RDW Std Deviation (36.4-46.3) fL RDW Coeff of John (11.5-14.5) % Plt Count (130-400) K/uL MPV (7.4-10.4) fL Immature Gran % (Auto) % Neut % (Auto) % Lymph % (Auto) % [place] % (Auto) % Eos % (Auto) % Baso % (Auto) % Neut # (Auto) (1.4-6.5) K/uL Lymph # (Auto) (1.2-3.4) K/uL [place] # (Auto) (0.11-0.59) K/uL Eos # (Auto) (0-0.5) K/uL Baso # (Auto) (0-0.2) K/uL Immature Gran # (Auto) (0.00-0.02) K/uL Sodium (136-145) mmol/L Potassium (3.5-5.1) mmol/L Chloride (98-107) mmol/L Carbon Dioxide (21-32) mmol/L Anion Gap (3-11) BUN (7-18) mg/dl Creatinine (0.6-1.2) mg/dl Est Cr Clr Drug Dosing ml/min Est GFR ( Amer) Est GFR (Non-Af Amer) BUN/Creatinine Ratio (10-20) Glucose (70-99) mg/dl POC Glucose 262 H 265 H 148 H (70-99) mg/dl Calcium (8.5-10.1) mg/dl Total Bilirubin (0.2-1) mg/dl AST (15-37) U/L ALT (12-78) U/L Alkaline Phosphatase (45-117) U/L C-Reactive Protein (0-0.29) mg/dl Total Protein (6.4-8.2) gm/dl Albumin (3.4-5.0) gm/dl Globulin (2.5-4.0) gm/dl Albumin/Globulin Ratio (0.9-2) 06/09/20 06/09/20 06/09/20 Range/Units 06:31 06:31 04:41 WBC 5.05 (4.8-10.8) K/uL RBC 4.14 L (4.2-5.4) M/uL Hgb 11.9 L (12.0-16.0) g/dL Hct 34.5 L (37-47) % MCV 83.3 (80-100) fL MCH 28.7 (25-34) pg MCHC 34.5 (32-36) g/dL RDW Std Deviation 37.8 (36.4-46.3) fL RDW Coeff of John 12.4 (11.5-14.5) % Plt Count 307 (130-400) K/uL MPV 10.4 (7.4-10.4) fL Immature Gran % (Auto) 0.8 % Neut % (Auto) 69.5 % Lymph % (Auto) 17.4 % [place] % (Auto) 12.1 % Eos % (Auto) 0.0 % Baso % (Auto) 0.2 % Neut # (Auto) 3.51 (1.4-6.5) K/uL Lymph # (Auto) 0.88 L (1.2-3.4) K/uL [place] # (Auto) 0.61 H (0.11-0.59) K/uL Eos # (Auto) 0.00 (0-0.5) K/uL Baso # (Auto) 0.01 (0-0.2) K/uL Immature Gran # (Auto) 0.04 H (0.00-0.02) K/uL Sodium 138 (136-145) mmol/L Potassium 3.2 L (3.5-5.1) mmol/L Chloride 106 (98-107) mmol/L Carbon Dioxide 25 (21-32) mmol/L Anion Gap 7.0 (3-11) BUN 16 (7-18) mg/dl Creatinine 0.72 (0.6-1.2) mg/dl Est Cr Clr Drug Dosing 119.0 ml/min Est GFR ( Amer) 112.4 Est GFR (Non-Af Amer) 97.0 BUN/Creatinine Ratio 21.6 H (10-20) Glucose 152 H (70-99) mg/dl POC Glucose 158 H (70-99) mg/dl Calcium 8.6 (8.5-10.1) mg/dl Total Bilirubin 0.5 (0.2-1) mg/dl AST 28 (15-37) U/L ALT 40 (12-78) U/L Alkaline Phosphatase 53 (45-117) U/L C-Reactive Protein 4.90 H (0-0.29) mg/dl Total Protein 6.8 (6.4-8.2) gm/dl Albumin 3.0 L (3.4-5.0) gm/dl Globulin 3.8 (2.5-4.0) gm/dl Albumin/Globulin Ratio 0.8 L (0.9-2) 06/09/20 06/08/20 Range/Units 00:03 20:19 WBC (4.8-10.8) K/uL RBC (4.2-5.4) M/uL Hgb (12.0-16.0) g/dL Hct (37-47) % MCV (80-100) fL MCH (25-34) pg MCHC (32-36) g/dL RDW Std Deviation (36.4-46.3) fL RDW Coeff of John (11.5-14.5) % Plt Count (130-400) K/uL MPV (7.4-10.4) fL Immature Gran % (Auto) % Neut % (Auto) % Lymph % (Auto) % [place] % (Auto) % Eos % (Auto) % Baso % (Auto) % Neut # (Auto) (1.4-6.5) K/uL Lymph # (Auto) (1.2-3.4) K/uL [place] # (Auto) (0.11-0.59) K/uL Eos # (Auto) (0-0.5) K/uL Baso # (Auto) (0-0.2) K/uL Immature Gran # (Auto) (0.00-0.02) K/uL Sodium (136-145) mmol/L Potassium (3.5-5.1) mmol/L Chloride (98-107) mmol/L Carbon Dioxide (21-32) mmol/L Anion Gap (3-11) BUN (7-18) mg/dl Creatinine (0.6-1.2) mg/dl Est Cr Clr Drug Dosing ml/min Est GFR ( Amer) Est GFR (Non-Af Amer) BUN/Creatinine Ratio (10-20) Glucose (70-99) mg/dl POC Glucose 152 H 168 H (70-99) mg/dl Calcium (8.5-10.1) mg/dl Total Bilirubin (0.2-1) mg/dl AST (15-37) U/L ALT (12-78) U/L Alkaline Phosphatase (45-117) U/L C-Reactive Protein (0-0.29) mg/dl Total Protein (6.4-8.2) gm/dl Albumin (3.4-5.0) gm/dl Globulin (2.5-4.0) gm/dl Albumin/Globulin Ratio (0.9-2) PG Care Time/CCT Total # of Minutes Spent Total Time Spent with Patient: Total time spent is greater than 50% in coordination of care (as documented) at patient's floor/unit and/or counseling patient: Coding Level of Care Code 77756 Subseq Hosp Care Lvl 3 Diagnoses COVID-19 U07.1 Hypoxia R09.02 Diabetes E11.9 Hypokalemia E87.6 Hypertension I10 DVT prophylaxis Z29.9
[2020-06-10] MEDS: ALBUTEROL HFA 8 GM INHALER INH SCH ×2 (00:10→07:35)
[2020-06-10] MEDS: ENOXAPARIN INJ 60 MG/0.6 ML SYR SQ SCH ×2 (05:42→17:56)
[2020-06-10 06:22] LABS: Basophils # (auto) 0.01 K/uL (0-0.2); Basophils % (auto) 0.2 %; Eosinophils # (auto) 0.01 K/uL (0-0.5); Eosinophils % (auto) 0.2 %; Hematocrit (blood only) 33.4 % (37-47); Hemoglobin 11.7 g/dL (12.0-16.0); Immature Granulocytes # (auto) 0.09 K/uL (0.00-0.02); Immature Granulocytes % (auto) 1.7 %; Lymphocytes % (auto) 19.2 %; Mean Corpuscular Volume 82.7 fL (80-100); Mean Platelet Volume 10.1 fL (7.4-10.4); Monocytes % (auto) 15.3 %; Neutrophils # (auto) 3.31 K/uL (1.4-6.5); Neutrophils % (auto) 63.4 %; Platelet Count 329 K/uL (130-400); RDW Coefficient of Variation 12.3 % (11.5-14.5); RDW Standard Deviation 37.5 fL (36.4-46.3); Red Blood Count 4.04 M/uL (4.2-5.4); White Blood Count 5.22 K/uL (4.8-10.8)
[2020-06-10 06:56] LABS: BUN Creatinine Ratio 23.4 (10-20); Calcium 8.2 mg/dl (8.5-10.1); Creatinine Clr Calc Pharmacy 129.5 ml/min; Est GFR (African American) 118.5; Est GFR (Non-African American) 102.3; Magnesium 2.3 mg/dl (1.8-2.4); Potassium 3.8 mmol/L (3.5-5.1)
[2020-06-10 07:15] LABS: C Reactive Protein 2.51 mg/dl (0-0.29)
[2020-06-10] MEDS ORDERED: INSULIN ASPART 100 UNITS/ML 3 ML PEN SC SCH (07:30)
[2020-06-10] MEDS: dexAMETHasone 6 MG in SYRINGE 0 ML IV SCH (08:32)
[2020-06-10] MEDS: INSULIN HUMAN NPH SC SCH (08:34)
[2020-06-10] MEDS: AZITHROMYCIN 250 MG TAB PO SCH (08:34)
[2020-06-10] MEDS: BENZONATATE 100 MG CAPSULE PO SCH ×3 (08:35→20:32)
[2020-06-10] MEDS ORDERED: ALBUTEROL HFA 8 GM INHALER INH PRN (09:55)
[2020-06-10] MEDS: REMDESIVIR 100mg: Days 2-5 IV SCH (11:39)
--- NOTE | 2020-06-10 12:04 | Pharmacy Report ---
Pharmacy Glycemic Short Note 2 - Date of Service June 10, 2020 - Glycemic Short BSG Results (Last 24 hours): 06/09/20 06/09/20 06/10/20 16:17 21:02 05:29 Glucose 142 H POC Glucose 262 H 255 H 06/10/20 08:06 Glucose POC Glucose 133 H OUTPATIENT ANTIDIABETIC REGIMEN: * METFORMIN 1 GM BIDM, Glimepiride 4 mg daily * A1c 8.7% 06/08/20 ASSESSMENT: 06/10 * Pt has received 98 units of insulin over the past 24hrs * 40 units of basal with NPH for steroid induced hyperglycemia with Dexamethasone 6mg IV daily * 58 units of bolus with NovoLog * BSGs [id number] mg/dl * AM fasting BSGs are in goal range indicating that 24h insulin may not be necessary * All other BSGs elevated indicating more NPH needed for steroid induced hyperglycemia. Will increase NPH by ~20%; may need to tighten CR as well 06/09 * Pt received 82 units of insulin yesterday, 40 units of NPH and 42 units of prandial/correctional novolog * Day 3 of dexamethasone, continued 40 units of NPH (~0.4 unit/kg) * Lunch BSG elevated again today but patient trended down yesterday will tighten carb ratio with breakfast 06/08 * Ms. SHEETS is admitted with hypoxia secondary to COVID-19 infection, she has a PMH including HTN and Type II diabetes * Initial BSGs elevated in the 200s, also started on 6mg dexamethasone IV daily. * Utilizing NPH to help with steroid related hyperglycemia, will consider adding lantus if BSGs remain elevated * Novolog currently being dosed at weight based stress of 3, will continue for now, tighten if BSGs remain elevated. PLAN FOR INPATIENT GLYCEMIC CONTROL: * Hold outpatient oral diabetes medications * Basal insulin: increase * NPH 50 units with dexamethasone * Bolus insulin: no change * NovoLog per scale ACHS or Q6hrs while NPO * Goal Range: Low 110 mg/dL - High 140 mg/dL * Correction Factor: 15 mg/dL/unit * Nutritional / Prandial insulin per carb ratio of 1 unit per 5 grams CHO consumed for lunch,dinner,HS, 1 unit per 4 grams of CHO consumed for breakfast PLAN FOR DISCHARGE: * A1c = 8.7 % on 06/08/20 * Goal A1c = <7 % based on age and comorbidities * Pt is on max dose metformin + glimepiride 4mg PO daily. May consider increasing glimepiride up to max dose of 8mg/day. * B12 supplementation may be necessary with ocean transportation intermediary metformin use * Alternatively, may consider the following to minimize weight gain or promote weight loss: * GLP-1 receptor agonist: Decreases major adverse cardiovascular events, high efficacy, low hypo risk, weight loss, significant GI side effects (titrate low and slow) and risk of thyroid tumors, high cost * SGLT2 inhibitor: Decreases major adverse cardiovascular events, intermediate efficacy, low hypo risk, weight loss, /dehydration and risk of amputation (canagliflozin) side effects, high cost * Support Patient Self-Management * Healthy Lifestyle (diet, exercise, and smoking cessation) * Disease self-management (SMBG) * Prevention of complications (BP, Lipid goals, Immunizations) * Consider outpatient Diabetes Self-Management Education & Support
[2020-06-10] MEDS: INSULIN ASPART 100 UNITS/ML 3 ML PEN SC SCH ×3 (12:38→21:09)
[2020-06-10] MEDS: SODIUM CHLORIDE 0.9% 10ML FLUSH IV SCH (12:41)
--- NOTE | 2020-06-10 14:32 | Hospitalist Progress Note ---
Date of Service June 10, 2020 Assessment & Plan (1) COVID-19: COVID-19 pneumonia with associated chest x-ray changes and hypoxemia, requiring 4 to 5 L nasal cannula initially now weaned down to 1 L nasal cannula She received Regeneron at [facility] on day#7, symptoms started on 3 Procalcitonin is negative, troponin negative, CRP is 4.9 and now trended down to 2.5-we will check a two-step tomorrow morning and I will discharge to home Blood cultures remain no growth to date -Continue supplemental O2 to keep pulse ox greater than 90% and wean off as tolerated as an outpatient -Continue dexamethasone 6 mg IV daily x10-day course-last day will be 06/16 -Continue remdesivir x5-day course-last day of course will be 06/11 -Continue guaifenesin with codeine as needed -Continue Tessalon Perles 20 mg p.o. 3 times daily -Continue flutter valve and incentive spirometry, encourage prone positioning -Continue azithromycin x5-day course-last day will be 06/11 Continue albuterol scheduled -Would follow chest x-ray to resolution (2) Hypoxia: As above, improving, check two-step in the morning and will likely need oxygen with exertion upon discharge (3) Diabetes: Patient typically takes oral sulfonylurea and Metformin --hold these while inpatient With hyperglycemia secondary to corticosteroids -Glycemic consult for insulin management appreciated-giving NPH and NovoLog hemoglobin A1c elevated at 8.7%-May benefit from third oral agent versus insulin at home (4) Hypokalemia: Potassium mildly low at 3.2 and was replaced and now normal (5) Hypertension: Blood pressures are fairly well controlled Continue amlodipine 5 mg daily Continue to follow (6) DVT prophylaxis: Continue Lovenox 0.5 mg/KG every 12 hours Disposition-continued stay but improving, could potentially be discharged tomorrow with a two-step walk test Admission and Anticipated Discharge Date Admission Date: June 07, 2020 Subjective Patient reports still with a cough and still short of breath with exertion like walking across the room. She wants to know what she needs to do to be able to be discharged. Denies nausea or vomiting, no diarrhea. She actually has not had a bowel movement a couple of days and is worried she will get abdominal pain. Review of Systems Review of Systems: All systems reviewed & are unremarkable except as noted in HPI & below Physical Exam Constitutional: WD/WN, vitals as above Eyes: + anicteric sclerae Neck: trachea midline, no thyromegaly Respiratory: normal respiratory effort and + cough Auscultation: + diminished lung sounds (throughout) and + crackles (bilateral lower lung medel); no wheezes Cardiovascular: RRR, no murmur, no edema Extremities: no calf tenderness Chest (Breasts): Chest: normal inspection of chest Gastrointestinal (Abdomen): normal bowel sounds, soft, nontender, no hepatosplenomegaly Musculoskeletal: Extremities: extremities normal to inspection; no cyanosis and no clubbing Skin: no rashes, warm and dry Neurologic: moves all extremities and awake; no focal motor deficits Psychiatric: A+Ox3, euthymic affect Lymphatic: no lymphedema Results & Data Results & Data ([facility]) Vital Signs (Past 12 Hours) Vital Signs Temp Pulse Resp BP Pulse Ox 06/10/20 07:35 65 18 94 06/10/20 07:18 36.8 C 58 L 18 143/82 H 95 Laboratory Results 06/10/20 06/10/20 06/10/20 Range/Units 11:49 08:06 05:29 WBC 5.22 (4.8-10.8) K/uL RBC 4.04 L (4.2-5.4) M/uL Hgb 11.7 L (12.0-16.0) g/dL Hct 33.4 L (37-47) % MCV 82.7 (80-100) fL MCH 29.0 (25-34) pg MCHC 35.0 (32-36) g/dL RDW Std Deviation 37.5 (36.4-46.3) fL RDW Coeff of John 12.3 (11.5-14.5) % Plt Count 329 (130-400) K/uL MPV 10.1 (7.4-10.4) fL Immature Gran % (Auto) 1.7 % Neut % (Auto) 63.4 % Lymph % (Auto) 19.2 % [place] % (Auto) 15.3 % Eos % (Auto) 0.2 % Baso % (Auto) 0.2 % Neut # (Auto) 3.31 (1.4-6.5) K/uL Lymph # (Auto) 1.00 L (1.2-3.4) K/uL [place] # (Auto) 0.80 H (0.11-0.59) K/uL Eos # (Auto) 0.01 (0-0.5) K/uL Baso # (Auto) 0.01 (0-0.2) K/uL Immature Gran # (Auto) 0.09 H (0.00-0.02) K/uL Sodium (136-145) mmol/L Potassium (3.5-5.1) mmol/L Chloride (98-107) mmol/L Carbon Dioxide (21-32) mmol/L Anion Gap (3-11) BUN (7-18) mg/dl Creatinine (0.6-1.2) mg/dl Est Cr Clr Drug Dosing ml/min Est GFR ( Amer) Est GFR (Non-Af Amer) BUN/Creatinine Ratio (10-20) Glucose (70-99) mg/dl POC Glucose 246 H 133 H (70-99) mg/dl Calcium (8.5-10.1) mg/dl Magnesium (1.8-2.4) mg/dl C-Reactive Protein (0-0.29) mg/dl 06/10/20 06/09/20 Range/Units 05:29 21:02 WBC (4.8-10.8) K/uL RBC (4.2-5.4) M/uL Hgb (12.0-16.0) g/dL Hct (37-47) % MCV (80-100) fL MCH (25-34) pg MCHC (32-36) g/dL RDW Std Deviation (36.4-46.3) fL RDW Coeff of John (11.5-14.5) % Plt Count (130-400) K/uL MPV (7.4-10.4) fL Immature Gran % (Auto) % Neut % (Auto) % Lymph % (Auto) % [place] % (Auto) % Eos % (Auto) % Baso % (Auto) % Neut # (Auto) (1.4-6.5) K/uL Lymph # (Auto) (1.2-3.4) K/uL [place] # (Auto) (0.11-0.59) K/uL Eos # (Auto) (0-0.5) K/uL Baso # (Auto) (0-0.2) K/uL Immature Gran # (Auto) (0.00-0.02) K/uL Sodium 140 (136-145) mmol/L Potassium 3.8 D (3.5-5.1) mmol/L Chloride 111 H (98-107) mmol/L Carbon Dioxide 24 (21-32) mmol/L Anion Gap 5.0 (3-11) BUN 15 (7-18) mg/dl Creatinine 0.66 (0.6-1.2) mg/dl Est Cr Clr Drug Dosing 129.5 ml/min Est GFR ( Amer) 118.5 Est GFR (Non-Af Amer) 102.3 BUN/Creatinine Ratio 23.4 H (10-20) Glucose 142 H (70-99) mg/dl POC Glucose 255 H (70-99) mg/dl Calcium 8.2 L (8.5-10.1) mg/dl Magnesium 2.3 (1.8-2.4) mg/dl C-Reactive Protein 2.51 H (0-0.29) mg/dl PG Care Time/CCT Total # of Minutes Spent Total Time Spent with Patient: Total time spent is greater than 50% in coordination of care (as documented) at patient's floor/unit and/or counseling patient: Coding Level of Care Code 61491 Subseq Hosp Care Lvl 2 Diagnoses COVID-19 U07.1 Hypoxia R09.02 Diabetes E11.9 Hypokalemia E87.6 Hypertension I10 DVT prophylaxis Z29.9
[2020-06-11] MEDS: ENOXAPARIN INJ 60 MG/0.6 ML SYR SQ SCH (05:31)
[2020-06-11] MEDS: dexAMETHasone 6 MG in SYRINGE 0 ML IV SCH (08:52)
[2020-06-11] MEDS: AZITHROMYCIN 250 MG TAB PO SCH (08:54)
[2020-06-11] MEDS: BENZONATATE 100 MG CAPSULE PO SCH ×2 (08:54→14:40)
[2020-06-11] MEDS: INSULIN ASPART 100 UNITS/ML 3 ML PEN SC SCH ×2 (09:15→12:47)
[2020-06-11] MEDS: INSULIN HUMAN NPH SC SCH (09:16)
[2020-06-11] MEDS: REMDESIVIR 100mg: Days 2-5 IV SCH (11:45)
[2020-06-11] MEDS: SODIUM CHLORIDE 0.9% 10ML FLUSH IV SCH (13:13)
--- NOTE | 2020-06-11 13:43 | Discharge Summary ---
Date of Service June 11, 2020 Admission HPI Per Admitting Provider 50-year-old female whose upper respiratory symptoms began approximately 8 days ago on 05/30/2020. Patient had outpatient Covid testing on 06/05/2020 which was positive. Patient was in [facility] ER on 06/06/2020 where he received she received Covid antibody therapy, despite this fact he had progressive shortness of breath dyspnea nonproductive cough she presented to our emergency department where she is found to have an oxygen saturation of 85% on room air. Imaging of her chest reveals patchy bilateral pulmonary infiltrates consistent with bilateral pneumonia. 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 Principal Diagnosis COVID-19 Pneumonia, Hypoxia Discharge Exam Constitutional WD/WN, vitals as above Eyes + anicteric sclerae Neck trachea midline, no thyromegaly Respiratory normal respiratory effort and + cough Auscultation: + diminished lung sounds (throughout) and + crackles (bilateral lower lung medel); no wheezes Cardiovascular RRR, no murmur, no edema Extremities: no calf tenderness Chest (Breasts) Chest: normal inspection of chest Gastrointestinal (Abdomen) normal bowel sounds, soft, nontender, no hepatosplenomegaly Musculoskeletal Extremities: extremities normal to inspection; no cyanosis and no clubbing Skin no rashes, warm and dry Neurologic moves all extremities and awake; no focal motor deficits Psychiatric A+Ox3, euthymic affect Lymphatic no lymphedema Discharge Data Allergies Allergy/AdvReac Type Severity Reaction Status Date / Time Penicillins AdvReac Unknown itchy/hives Unverified 06/07/20 14:23 Consultations 06/07/20 14:25 ED Decision to Admit Stat Hospital Course (1) COVID-19: COVID-19 pneumonia with associated chest x-ray changes and hypoxemia, requiring 4 to 5 L nasal cannula initially now weaned completely off O2 She received Regeneron at [facility] on day#7, symptoms started on 05/30 Procalcitonin is negative, troponin negative, CRP is 4.9 and now trended down to 2.5 Blood cultures remain no growth to date -Continue dexamethasone 6 mg daily x10-day course-last day will be 06/16-sent home with po decadron -completed 5 day course of remdesevir -Continue guaifenesin with codeine as needed -Continue Tessalon Perles 200 mg p.o. 3 times daily -Continue flutter valve and incentive spirometry, encourage prone positioning -received azithromycin x5-day course Continue albuterol scheduled -Would follow chest x-ray to resolution as an outpt in 3-4 weeks (2) Hypoxia: As above, now resolved, passed a 2 step walk test (3) Diabetes: Patient typically takes oral sulfonylurea and Metformin --held these while inpatient With hyperglycemia secondary to corticosteroids improved with increased insulin doses -Glycemic consult for insulin management appreciated-giving NPH and NovoLog hemoglobin A1c elevated at 8.7%-May benefit from third oral agent versus insulin at home resume home meds on discharge (4) Hypokalemia: repleted (5) Hypertension: Blood pressures are fairly well controlled Continue amlodipine 5 mg daily Continue to follow as outpt (6) DVT prophylaxis: received Lovenox 0.5 mg/KG every 12 hours and will discharge on Xarelto 10mg po daily x 35 day course as is high risk for DVT given prolonged immobilization and hospitalization, obesity, inflammation from acute infectious disease with COVID Disposition-dc to home Total Time Total Time Spent Total Time Spent (In Minutes): 35 min Total Time Includes: Examination of the Patient, Discharge Planning and Medication Reconciliation Discharge Plan Discharge Items Patient Disposition: Home - Self-Care Reason For Visit: COVID Discharge Diagnosis: COVID-19 Pneumonia, Hypoxia Condition on Discharge: Good Activity: As commented below Bathing: No limitations Exercise/Sports: Gradually increase as tolerated Non-emergency contact: Primary Care Provider Call non-emergency contact if: you have any medication questions and your symptoms worsen Follow-up/Referrals: Gregorio Espana [Primary Care Provider] - (Please follow up within 1-2 weeks.) Diet: Carb Consistent or DM2 and Heart Healthy Addtl Attending Provider Instructions: You were admitted for COVID Pneumonia and low oxygen levels. Your oxygen levels improved and you weren't requiring oxygen at the time of discharge. Please finish out the course of the steroid (dexamethasone) pill. You can take guaifenesin with codeine or Tessalon perles as needed for cough. You will be prescribed Xarelto 10mg once daily for 35 days to prevent you from getting a blood clot due to having COVID and being hospitalized. COVID and hospitalization put you at increased risk for getting a blood clot in the leg or lung. If you have any issues with bleeding or develop a severe headache after discharge, or have a fall and hit your head, please get checked out immediately at a hospital. Follow up with your PCP within 1-2 weeks. You should have a chest xray in 3-4 weeks to make sure that your pneumonia has completely resolved. Pending Studies at Discharge: Yes Stand-Alone Forms: My [facility], Work/School Release (Inpt) Medications and DC Order Prescriptions: New benzonatate 200 mg capsule 200 mg PO TID PRN (Reason: cough) Qty: 20 RF: 0 dexamethasone 6 mg tablet 6 mg PO DAILY Qty: 5 RF: 0 Xarelto 10 mg tablet 10 mg PO DAILY 35 Days Qty: 35 RF: 0 Continued metformin 1,000 mg Tablet 1,000 mg PO BID RF: 0 glimepiride [Amaryl] 4 mg Tablet 4 mg PO DAILY RF: 0 amlodipine 5 mg tablet 5 mg PO QAM RF: 0 Discharge Orders: Discharge Order (Routine); Ordered 06/11/20 Ordered By: Samira Grossman/Other Patient Handouts: Managing Type 2 Diabetes, Managing Diabetes: The A1C Test Admission Data Admit Date/Time: 06/07/20 14:26 Attending Provider: Samira Dickson Admit Provider: Chencho Arthur Primary Care Provider: Gregorio Espana Other Interventions: Discharge Summary Assessment (RN) Last Done: 06/11/20 13:52 Coding Level of Care Code D/C Day Management >30 mins Diagnoses COVID-19 U07.1 Hypoxia R09.02 Diabetes E11.9 Hypokalemia E87.6 Hypertension I10 DVT prophylaxis Z29.9
== END 2020-06-11 14:40 | disposition home or self-care (01) | DRG 177 ==
LOC: ED 11:24 → SUATTDRO 14:26 → 2E 14:26